=== PATIENT | female | born 1950 ===

== ENCOUNTER 2017-12-20 11:28 | Emergency (ER) | payer MEDICARE, MEDICAID ==
[2017-12-20 11:29] VITALS: BMI 30.2
[2017-12-20 11:37] VITALS: BP 172/96; PULSE 94; RESP 20; TEMP 98.9; O2SAT 98
[2017-12-20] MEDS ORDERED: Lidocaine 5% Patch TD STA (11:51)
[2017-12-20] MEDS ORDERED: Lidocaine 5% Patch TD ONE (12:01)
--- NOTE | 2017-12-20 12:33 | C.PDOC ---
History Of Present Illness Patient is a 67 y/o female who presents to the ED with a complaint of worsening swelling to the face over the last 6 days. Patient reports swelling initially began on right cheek but is now bilateral. Notes being stable all week until today, prompting visit. Admits to mild itchiness and Hx of asthma, but denies asthma exacerbation, trauma, new product use, or new medications. Patient also notes diffuse rights-sided arm, chest wall, and back pain since this morning that worsens with movement; patient believes to have "slept funny". No other physical complaints at this time. Time Seen by Provider: 12/20/17 11:44 Chief Complaint (Nursing): Abnormal Skin Integrity History Per: Patient History/Exam Limitations: no limitations Onset/Duration Of Symptoms: Days (6 days), Worse Since Current Symptoms Are (Timing): Still Present Quality Of Symptoms: Itching (mild), Swollen Recent travel outside of the [place]: No Past Medical History Reviewed: Historical Data, Nursing Documentation, Vital Signs Vital Signs: Last Vital Signs Temp 98.9 F 12/20/17 11:37 Pulse 94 H 12/20/17 11:37 Resp 20 12/20/17 11:37 BP 172/96 H 12/20/17 11:37 Pulse Ox 98 12/20/17 12:37 - Medical History PMH: Asthma, HTN, Hypercholesterolemia Surgical History: No Surg Hx Family History: States: No Known Family Hx - Social History Hx Tobacco Use: No Hx Alcohol Use: No Hx Substance Use: No - Immunization History Hx Tetanus Toxoid Vaccination: No Hx Influenza Vaccination: Yes Hx Pneumococcal Vaccination: Yes Review Of Systems Musculoskeletal: Positive for: Arm Pain (right), Back Pain (right-sided), Other (right-sided chest wall pain) Skin: Positive for: Other (swelling to bilateral cheeks, mild itching) Physical Exam - Physical Exam Appears: No Acute Distress Skin: Normal Color, Warm, Dry Oral Mucosa: Moist Chest: Symmetrical, No Deformity, No Tenderness Cardiovascular: Rhythm Regular, No Murmur Respiratory: Normal Breath Sounds, No Rales, No Rhonchi, No Stridor Gastrointestinal/Abdominal: Normal Exam, No Soft, No Tenderness Back: Normal Inspection, No CVA Tenderness Extremity: Normal ROM (FROMx4) Neurological/Psych: Oriented x3, Normal Speech, Normal Cognition ED Course And Treatment O2 Sat by Pulse Oximetry: 98 Progress Note: Tylenol, benadryl, lidoderm, and prednisone administered. Disposition Counseled Patient/Family Regarding: Diagnosis, Need For Followup, Rx Given - Disposition Referrals: YOUR,PMD [Other] Disposition: HOME/ ROUTINE Disposition Time: 13:02 Condition: IMPROVED Prescriptions: DiphenhydrAMINE [Benadryl] 25 mg PO TID PRN #30 cap PRN Reason: Itching / Pruritus predniSONE [Prednisone] 60 mg PO DAILY #12 tab Instructions: Angioedema (DC) Forms: [employer] (Arabic) Print Language: GREEK - Clinical Impression Clinical Impression: Urticaria - Scribe Statement The provider has reviewed the documentation as recorded by the Scribe Lexi Gallagher All medical record entries made by the Scribe were at my direction and personally dictated by me. I have reviewed the chart and agree that the record accurately reflects my personal performance of the history, physical exam, medical decision making, and the department course for this patient. I have also personally directed, reviewed, and agree with the discharge instructions and disposition.
== END 2017-12-20 13:34 | disposition home or self-care (01) ==
LOC: C.ER 11:28
DX: L50.9 Urticaria, unspecified (principal)

== ENCOUNTER 2017-12-21 20:45 | Emergency (ER) | payer MEDICARE, MEDICAID ==
[2017-12-21 20:46] VITALS: BMI 30.2
[2017-12-21 21:03] VITALS: RESP 20
--- NOTE | 2017-12-21 21:16 | C.PDOC ---
History Of Present Illness 67 year old female with PMHx of HTN and asthma presents to the ED c/o right sided chest pain that radiates to her back that started yesterday. Patient was seen in the ED on 12/20 for the same symptoms and was given a lidoderm patch and ibuprofen which resolved the pain. Patient's daughter states the pain came back today at 19:30 and has worsened. Patient's daughter reports she did not give her any pain medicine today because she wanted to come to the ED. Patient denies SOB, headache, injury, fall, trauma, weakness, numbness, cough, fever, chills, recent travel leg swelling. Time Seen by Provider: 12/21/17 21:06 Chief Complaint (Nursing): Upper Extremity Problem/Injury History Per: Patient History/Exam Limitations: no limitations Onset/Duration Of Symptoms: Days Current Symptoms Are (Timing): Still Present Quality: "Pain" Recent travel outside of the [place]: No Additional History Per: Patient Past Medical History Reviewed: Historical Data, Nursing Documentation, Vital Signs Vital Signs: Last Vital Signs Temp 99 F 12/21/17 23:00 Pulse 93 H 12/21/17 23:00 Resp 20 12/21/17 23:00 BP 143/80 12/21/17 23:00 Pulse Ox 97 12/22/17 15:43 - Medical History PMH: Asthma, HTN, Hypercholesterolemia Surgical History: No Surg Hx Family History: States: Unknown Family Hx - Social History Hx Tobacco Use: No Hx Alcohol Use: No Hx Substance Use: No - Immunization History Hx Tetanus Toxoid Vaccination: No Hx Influenza Vaccination: Yes Hx Pneumococcal Vaccination: Yes Review Of Systems Constitutional: Negative for: Fever, Chills Eyes: Negative for: Vision Change Cardiovascular: Positive for: Chest Pain Respiratory: Negative for: Cough, Shortness of Breath Musculoskeletal: Positive for: Back Pain Skin: Negative for: Rash Neurological: Negative for: Weakness, Numbness Physical Exam - Physical Exam Appears: Non-toxic, No Acute Distress Skin: Normal Color, Warm, Dry Head: Atraumatic, Normacephalic Eye(s): bilateral: Normal Inspection Oral Mucosa: Moist Neck: Normal ROM, Supple Chest: Symmetrical, Tenderness (anterior right chest wall) Cardiovascular: Rhythm Regular, No Murmur Respiratory: Normal Breath Sounds, No Accessory Muscle Use, No Rales, No Rhonchi , No Wheezing Back: Other (reproducible upper right back pain) Extremity: Normal ROM, No Tenderness, No Swelling Neurological/Psych: Oriented x3, Normal Speech, Normal Cognition, Normal Motor, Normal Sensation Gait: Steady ED Course And Treatment ECG: Viewed By Me ECG Rhythm: Sinus Rhythm Interpretation Of ECG: nsr with voltage criteria for lvh/. Rate From EC (no old ekg for comparison) O2 Sat by Pulse Oximetry: 97 (ON RA) Pulse Ox Interpretation: Normal - Radiology CXR: Interpreted by Me, Viewed By Me CXR Interpretation: Yes: Other (atelectasis right side) Medical Decision Making Medical Decision Making: Impression: chest pain and back pain Plan: * CXR pt with reproducible right side cp worse with movement, no acute changes on ekg , cxr with ? atelectasis right side. d/c with nsaids. f/u pmd. 12/22/17 330 pm cxr result from 12/21 reviewed, and pneumonia noted. Patient was called to inform her of results, spoke to daughter who lives with patient; rx for levaquin 750 mg po qd x 5 days called into [facility]. discussed with Dr Schaeffer of results and that pt will call for f/u appt this week. Disposition Counseled Patient/Family Regarding: Studies Performed, Diagnosis, Need For Followup, Rx Given - Disposition Referrals: Shaik Schaeffer MD [Staff Provider] - Disposition: HOME/ ROUTINE Disposition Time: 23:09 Condition: IMPROVED Additional Instructions: Please follow up with Dr Schaeffer on Thursday. Take tylenol for pain if needed. Return to ER for any worse symptoms. Prescriptions: Acetaminophen [Tylenol 325mg tab] 650 mg PO Q4 #50 tab Instructions: Chest Pain That Is Not Caused by the Heart (DC) Forms: [employer] (Slovenian), Gen Discharge Inst Slovenian Print Language: LIBERIAN - Clinical Impression Clinical Impression: Chest wall pain - PA / [employer] P[employer]ER OPERATOR / Resident Statement MD/DO has reviewed & agrees with the documentation as recorded. - Scribe Statement The provider has reviewed the documentation as recorded by the Scribe Herman Llanes All medical record entries made by the Scribe were at my direction and personally dictated by me. I have reviewed the chart and agree that the record accurately reflects my personal performance of the history, physical exam, medical decision making, and the department course for this patient. I have also personally directed, reviewed, and agree with the discharge instructions and disposition.
[2017-12-21 23:01] VITALS: BP 143/80; PULSE 93; TEMP 99
[2017-12-21 23:06] VITALS: O2SAT 97
--- NOTE | 2017-12-22 11:28 | RAD ---
HISTORY: right side chest pain COMPARISON: 02/18/2016. TECHNIQUE: Chest PA and lateral FINDINGS: LUNGS: Right upper lobe infiltrate best seen on the PA view. Atelectasis/infiltrate right lower lobe. PLEURA: No significant pleural effusion identified. No pneumothorax apparent. CARDIOVASCULAR: Cardiomegaly. No evidence of acute, significant cardiovascular disease. OSSEOUS STRUCTURES: No significant abnormalities. VISUALIZED UPPER ABDOMEN: Normal. OTHER FINDINGS: None. IMPRESSION: Infiltrates affecting right upper lobe, right lower lobe. These represent new findings compared to 02/18/2016. Findings suggest acute inflammatory process such as pneumonia. Concordant results with the preliminary interpretation rendered by the emergency department physician procedure.
--- NOTE | 2017-12-22 17:04 | CARD ---
APPROVED REPORT EKG Measurement Heart [id number] <Conclusion> Normal sinus rhythm Voltage criteria for left ventricular hypertrophy Abnormal ECG
== END 2017-12-21 23:22 | disposition home or self-care (01) ==
LOC: C.ER 20:45
DX: R07.89 Other chest pain (principal)
CPT/HCPCS: 71046; 93005; 96372; 99284; J1885